=== PATIENT | male | born 1970 | race Caucasian/White ===

== ENCOUNTER 2016-10-12 18:43 | Inpatient (IN) | payer OTHER ==
[~2016-10-12] VITALS: Ht 180.3 cm; Wt 83.9 kg
[2016-10-12 20:56] LABS: *AMPHETAMINE, URINE NEGATIVE (NEGATIVE); *BARBITURATE, URINE NEGATIVE (NEGATIVE); *CANNABINOID, URINE NEGATIVE (NEGATIVE); *COCCAINE, URINE POSITIVE (NEGATIVE); *OPIATE, URINE NEGATIVE (NEGATIVE); *PHENCYCLIDINE SCREEN,URINE NEGATIVE (NEGATIVE)
--- NOTE | 2016-10-12 21:00 | NUR ---
ADMISSION NOTE BP: 128/85, HR:103, RR:18, T:98.3, SpO2: 97%, Pain: pt denies pain at this time Ht: 5'11" Wt: 185 lbs CIWA:6 [facility] accompanied by a BHT at 2014. Pt is a 45 year old male patient admitted on 10/12/16 for ETOH dependency. Pt is full code with NKA. He reports a PMHx of anxiety and depression. He denies any tremors, recent falls or seizures. Pt reports that he does not smoke cigarettes. He verbalized that he has a PCP located in [place], [place] but is unable to recall the name at this time. He reports that he does not take any home medications. Pt verbalized that he is here for ETOH withdrawal. And this is his first time in detox. He reports his longest period of sobriety was 3 months from April-June 2015. Pt reports that he was hospitalized on 10/11/16 at [facility] for ETOH dependency. He states " they gave me colloidal silver for alcoholism and I had a reaction." Pt is noted with open scab on nasofacial area. No bleeding/infection noted. He reports that he is a binge drinker and verbalizes his current use as: 1. ETOH (vodka) binges twice a week 750 mL. Since 2012. Last dose: 750 mL (vodka) on 10/11/16 at 2100. He reports his withdrawal symptoms as " depression, mood swings, sweats, and anxiety." Upon assessment, pt is alert and oriented x4, anxious and cooperative. Speech is clear and audible. Heart rate is regular. Pt denies chest pain or SOB. PERRLA, breathing is even and unlabored, lung sounds clear. Abdomen is soft and non-distended. Bowel sounds present, last BM (10/11/16) pt reports that BM is regular. Pt skin is warm, dry and intact. Noted with open scab to nasofacial area. No s/s of infection and no bleeding noted. Photo taken and placed in chart. Pt refused all vaccines. Pt oriented to room and unit. MD made aware of pt's admission. Pt safe with bed locked in lowest position, side rails up x2 and call light within reach. Will continue to monitor.
[2016-10-12] MEDS ORDERED: HYDROXYZINE PAMOATE 25 MG CAPSULE PO PRN (21:30)
[2016-10-12] MEDS ORDERED: LOPERAMIDE HCL 2 MG CAPSULE PO PRN ×2 (21:30)
[2016-10-12] MEDS ORDERED: DICYCLOMINE HCL 20 MG TABLET PO PRN (21:30)
[2016-10-12] MEDS ORDERED: CLONIDINE HCL 0.1 MG TABLET PO PRN (21:30)
[2016-10-12] MEDS ORDERED: MAGNESIUM HYDROXIDE 30 ML LIQUID UDC PO PRN (21:30)
[2016-10-12] MEDS ORDERED: ONDANSETRON ODT 4 MG TAB.RAPDIS SL PRN (21:30)
[2016-10-12] MEDS ORDERED: IBUPROFEN 400 MG TABLET PO PRN (21:30)
[2016-10-12] MEDS ORDERED: PROMETHAZINE HCL 25 MG/1 ML VIAL IM PRN (21:30)
[2016-10-12] MEDS ORDERED: LORAZEPAM 2 MG/1 ML VIAL IM PRN (21:30)
[2016-10-12] MEDS ORDERED: MIRALAX 17 GM POWD.PACK PO PRN (21:30)
[2016-10-12] MEDS ORDERED: diphenhydrAMINE 50 MG CAPSULE PO PRN (21:30)
[2016-10-12] MEDS ORDERED: THIAMINE HCL 200 MG/2 ML VIAL IM ONE (21:30)
[2016-10-12] MEDS ORDERED: MAG HYDROX/AL HYDROX/SIMETH 30 ML LIQUID UDC PO PRN (21:30)
[2016-10-12] MEDS ORDERED: LORAZEPAM 1 MG TABLET PO PRN ×2 (21:30)
[2016-10-12] MEDS ORDERED: ACETAMINOPHEN 325 MG TABLET PO PRN (21:30)
--- NOTE | 2016-10-12 21:30 | NUR ---
NURSING NOTE Pt noted with UDS positive for cocaine. Clarified substance abuse with pt. Pt stated, " I did a few lines with my say a week ago."
[2016-10-12 21:56] LABS: BASOPHILS # (AUTO) 0.1 K/uL (0.0-0.2); BASOPHILS % (AUTO) 1.5 % (0.0-2.0); EOSINOPHILS % (AUTO) 0.6 % (0.0-7.0); HEMATOCRIT 46.5 % (40.0-50.0); HEMOGLOBIN 15.7 g/dL (14.0-18.0); LYMPHOCYTES # (AUTO) 1.7 K/uL (0.8-4.8); LYMPHOCYTES % (AUTO) 28.3 % (20.5-51.5); MEAN CORPUSCULAR HEMOGLOBIN 29.6 uug (27.0-31.0); MEAN CORPUSCULAR HGB CONC 34 g/dL (32.0-37.0); MEAN CORPUSCULAR VOLUME 87.5 fL (82.0-92.0); MONOCYTES # (AUTO) 0.4 K/uL (0.1-1.30); MONOCYTES % (AUTO) 7.3 % (0.0-11.0); NEUTROPHILS # (AUTO) 3.8 K/uL (1.8-8.9); NEUTROPHILS % (AUTO) 62.3 % (38.5-71.5); PLATELET COUNT (AUTO) 243 K/uL (150-450); RED BLOOD CELL COUNT(AUTO) 5.31 MIL/uL (4.70-6.10)
[2016-10-12 22:00] LABS: ALBUMIN 4.2 g/dL (3.4-5.0); BILIRUBIN,TOTAL 1.5 mg/dL (0.2-1.0); CALCIUM 8.9 mg/dL (8.5-10.1); CREATININE 1.2 mg/dL (0.6-1.3); MAGNESIUM 1.8 mg/dL (1.8-2.4); POTASSIUM 3.7 mmol/L (3.5-5.1); TOTAL PROTEIN, SERUM 7.8 g/dL (6.4-8.2)
[2016-10-12] MEDS ORDERED: THIAMINE HCL 200 MG/2 ML VIAL ONE (22:04)
[2016-10-12 22:23] LABS: THYROID STIMULATING HORMONE 1.32 mIU/mL (0.358-3.740)
[2016-10-12 22:54] LABS: HIV-1/2 ANTIBODY NON REACTIVE (NONREACTIVE)
[2016-10-12 22:55] LABS: HIV-1 p24 ANTIGEN NON REACTIVE (NONREACTIVE)
--- NOTE | 2016-10-13 | NUR ---
VITALS 0000 vitals refused by pt. Pt lying in bed with eyes closed noted to be asleep. Respirations 16, breathing is even and unlabored. Safety measures in place. Will continue to monitor. Addendum: 10/13/16 at 0252 by JAZZ KWAN RN Amended: Links added.
--- NOTE | 2016-10-13 04:00 | NUR ---
VITALS 0400 vitals refused by pt. Pt lying in bed with eyes closed noted to be asleep. Respirations 16, breathing is even and unlabored. Safety measures in place. Will continue to monitor.
--- NOTE | 2016-10-13 07:18 | NUR ---
END OF SHIFT Pt is a 45 year old male patient admitted on 10/12/16 for ETOH dependency. Pt is full code with NKA. He reports a PMHx anxiety and depression. He did not receive or request PRN medications during shift. He slept a total of 8 hrs, Intake: 500 mL, Void: x1, BM: 0. Pt remains alert and oriented x4, breathing is even and unlabored, safety measures in place. Endorsed to AM shift.
--- NOTE | 2016-10-13 07:19 | NUR ---
Start Of Shift Pt is a 45 year old male patient admitted on 10/12/16 for ETOH dependency. Pt is full code regular diet on fall and seizure precautions denies any food or drug allergies. Pt reports a PMH Anxiety and Depression. 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 Pt is not currently on a taper but has PRN medications in case of any withdrawal symptoms. Pt's last CIWA was a 6 taken at 2200. Pt slept a total of 8 hr's last night. MRSA completed and is pending. All safety measures in place per hospital policy, call light within reach, bed in lowest locked position side rails up x2, will continue to monitor and provide support.
[2016-10-13 08:00] VITALS: BP 111/76
[2016-10-13] MEDS ORDERED: rolaids (08:43)
[2016-10-13] MEDS ORDERED: NEOM28.37 TP (08:43)
[2016-10-13] MEDS ORDERED: TUBERCULIN,PURIF.PROT.DERIV. 5 TU/0.1 ML TEST ID ONE (09:00)
[2016-10-13] MEDS: THIAMINE HCL 100 MG TABLET PO SCH (09:39)
[2016-10-13] MEDS: FOLIC ACID 1 MG TABLET PO SCH (09:39)
[2016-10-13] MEDS: MULTIVITAMINS,THERAPEUTIC TABLET PO SCH (09:39)
[2016-10-13 12:00] VITALS: BP 116/75
[2016-10-13] MEDS: PATIENT MAY USE OWN MED- MD OK TOP SCH ×2 (14:28→17:00)
[2016-10-13 16:00] VITALS: BP 126/73
--- NOTE | 2016-10-13 19:00 | NUR ---
End Of Shift Pt is a 45 year old male patient admitted on 10/12/16 for ETOH dependency. Pt is full code regular diet on fall and seizure precautions denies any food or drug allergies. Pt reports a PMH Anxiety and Depression. Pt did not receive or request any PRN medications during the day shift. Pt is not currently on a taper but has PRN medications in case of any withdrawal symptoms. Pts last CIWA was a 2 taken at 1600. Pt participated in some activities and groups. Pt stated that the medications are working well at controlling the withdrawal symptoms, evidenced by low assessment scores during the day ranging from 5-2. Pt received a PPD on his left arm, home medications have been reconciled. Pt now has a scheduled Neosporin for his scabs on his face. Pt ate all of his meals. Pt remains compliant with the treatment plan. Pts vital signs within normal limits, A/Ox4, denies chest pain. Respirations even unlabored, lungs clear upon auscultation abdomen soft and non- distended. Pt denies nausea, vomiting and diarrhea. Pt total fluid intake was 2008 ml with 2 voids and 1 stool. Safety measures in place, call light within reach. All pertinent information discussed with farm equipment mechanic, endorsement given to farm equipment mechanic nurse.
--- NOTE | 2016-10-13 19:15 | NUR ---
START OF SHIFT Received 45 year old male patient admitted on 10/12/16 for ETOH dependency. Pt is full code with NKA. He reports a PMHx of anxiety and depression. Pt reports drinking vodka 750 mL and binges twice a week for 4 years. Last dose was 750 mL vodka on 10/11/16. He currently not receiving a taper but has PRN medications availale. Per endorsement, pt did not receive or request PRN medications. Pt is alert and oriented x4, breathing is even and unlabored, safety measures in place. Will continue to monitor.
[2016-10-13 20:00] VITALS: BP 130/81
--- NOTE | 2016-10-14 | NUR ---
VITALS 0000 vitals refused by at at beginning of shift. Pt lying in bed with eyes closed noted to be asleep. Respirations 16, breathing is even and unlabored, safety measures in place. Will continue to monitor. Addendum: 10/14/16 at 0048 by JAZZ KWAN RN Amended: Links added.
--- NOTE | 2016-10-14 04:00 | NUR ---
VITALS 0400 vitals refused by at at beginning of shift. Pt lying in bed with eyes closed noted to be asleep. Respirations 16, breathing is even and unlabored, safety measures in place. Will continue to monitor.
--- NOTE | 2016-10-14 07:09 | NUR ---
END OF SHIFT Pt is 45 year old male patient admitted on 10/12/16 for ETOH dependency. Pt is full code with NKA. He reports a PMHx of anxiety and depression. He is currently not receiving a taper but has PRN medications available. Pt did not receive or request PRN medications. He slept a total of 5 hrs, Intake:737mL Void:x1 BM:x1 CIWA:2. Pt remains alert and oriented x4, breathing is even and unlabored, safety measures in place. Endorsed to AM shift.
--- NOTE | 2016-10-14 07:10 | NUR ---
Start Of Shift Pt is a 45 year old male patient admitted on 10/12/16 for ETOH dependency. Pt is full code regular diet on fall and seizure precautions denies any food or drug allergies. Pt reports a PMH Anxiety and Depression. 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 Pt is not currently on a taper but has PRN medications in case of any withdrawal symptoms. Pt's last CIWA was a 2 taken at 2200. Pt slept a total of 5 hr's last night. All safety measures in place per hospital policy, call light within reach, bed in lowest locked position side rails up x2, will continue to monitor and provide support.
[2016-10-14 08:00] VITALS: BP 129/83
[2016-10-14] MEDS: PATIENT MAY USE OWN MED- MD OK TOP SCH ×2 (09:24→17:00)
[2016-10-14] MEDS: FOLIC ACID 1 MG TABLET PO SCH (09:25)
[2016-10-14] MEDS: MULTIVITAMINS,THERAPEUTIC TABLET PO SCH (09:25)
[2016-10-14] MEDS: THIAMINE HCL 100 MG TABLET PO SCH (09:25)
[2016-10-14 12:00] VITALS: BP 127/75
[2016-10-14 14:09] LABS: *AMPHETAMINE, URINE NEGATIVE (NEGATIVE); *BARBITURATE, URINE NEGATIVE (NEGATIVE); *CANNABINOID, URINE NEGATIVE (NEGATIVE); *COCCAINE, URINE NEGATIVE (NEGATIVE); *OPIATE, URINE NEGATIVE (NEGATIVE); *PHENCYCLIDINE SCREEN,URINE NEGATIVE (NEGATIVE)
[2016-10-14 16:00] VITALS: BP 129/79
--- NOTE | 2016-10-14 19:15 | NUR ---
START OF SHIFT Received 45 year old male patient admitted on 10/12/16 for ETOH dependency. Pt is full code with NKA. He reports a PMHx of anxiety and depression. Pt reports drinking vodka 750 mL and binges twice a week for 4 years. Last dose was 750 mL vodka on 10/11/16. He is currently not receiving a taper but has PRN medications available. Per endorsement, pt did not receive or request PRN medications and is scheduled to be DC tomorrow. Pt is alert and oriented x4, breathing is even and unlabored, safety measures in place. Will continue to monitor.
--- NOTE | 2016-10-14 19:17 | NUR ---
End Of Shift Pt is a 45 year old male patient admitted on 10/12/16 for ETOH dependency. Pt is full code regular diet on fall and seizure precautions denies any food or drug allergies. Pt reports a PMH Anxiety and Depression. Pt did not receive or request any PRN medications during the day shift. Pt is not currently on a taper but has PRN medications in case of any withdrawal symptoms. Pt's last CIWA was a 1 taken at 1600. Pt participated in some activities and groups. Pt stated that the medications are working well at controlling the withdrawal symptoms, evidenced by low assessment scores during the day ranging from 2-1. Pt ate all of his meals. Pt remains compliant with the treatment plan. Pts vital signs within normal limits, A/Ox4, denies chest pain. Respirations even unlabored, lungs clear upon auscultation abdomen soft and non- distended. Pt denies nausea, vomiting and diarrhea. Pt total fluid intake was 3000 ml with 4 voids and 2 stool. Safety measures in place, call light within reach. All pertinent information discussed with rn clinical research, endorsement given to rn clinical research nurse.
[2016-10-14 20:00] VITALS: BP 127/74
--- NOTE | 2016-10-15 | NUR ---
VITALS 0000 vitals refused by pt at beginning of shift. Pt lying in bed with eyes closed noted to be asleep. Respirations 16, breathing is even and unlabored, safety measures in place. Will continue to monitor.
--- NOTE | 2016-10-15 04:00 | NUR ---
VITALS 0400 vitals refused by pt at beginning of shift. Pt lying in bed with eyes closed noted to be asleep. Respirations 16, breathing is even and unlabored, safety measures in place. Will continue to monitor.
--- NOTE | 2016-10-15 07:17 | NUR ---
END OF SHIFT Pt is a 45 year old male patient admitted on 10/12/16 for ETOH dependency. Pt is full code with NKA. He reports a PMHx of anxiety and depression. He is currently not receiving a taper but has PRN medications availale. He is scheduled to be DC today. He did not receive or request PRN medications, he slept a total of 5 hrs, Intake: 1153 mL, void: x3, BM: 0, CIWA: 1. Pt remains alert and oriented x4, breathing is even and unlabored, safety measures in place. Endorsed to oncoming shift.
--- NOTE | 2016-10-15 07:30 | NUR ---
START OF SHIFT Pt is a 45 yr old male, AA&Ox4. Pt was admitted on 10/12/16 for ETOH Dependence and was on PRN's for s/s of w/d. No PRN's were given during the night. Pt is full code, regular diet and NKA. Pt reports of PMH Anxiety and Depression. Pt is to be discharged today to [facility]. UDS and Discharge order is complete. Will continue to f/u. Pt denies any anxiety or agitation. Skin is intact, warm and dry to touch. Pt is still noted with dry scab on bridge of nose. Pt remains on Neosporin oint daily. Medication is effective. Pt denies any n/v or pain. No tremors seen or felt. Encouraged increase fluid intake. Safety precautions observed. Call light is within reach. Will continue to monitor.
[2016-10-15 08:00] VITALS: BP 126/81
[2016-10-15] MEDS: THIAMINE HCL 100 MG TABLET PO SCH (08:31)
[2016-10-15] MEDS: FOLIC ACID 1 MG TABLET PO SCH (08:31)
[2016-10-15] MEDS: PATIENT MAY USE OWN MED- MD OK TOP SCH (08:31)
[2016-10-15] MEDS: MULTIVITAMINS,THERAPEUTIC TABLET PO SCH (08:31)
[2016-10-15 12:00] VITALS: BP 138/100
--- NOTE | 2016-10-15 13:10 | NUR ---
DISCHARGE NOTE Pt is a 45 yr old male, AA&Ox4. Pt was admitted on 10/12/16 for ETOH Dependence and was on PRN's for s/s of w/d. No PRN's were given during the night. Pt is full code, regular diet and NKA. Pt reports of PMH Anxiety and Depression. Pt has been cooperative with care and attended group sessions. Pt was cooperative with medication regime. Pt was educated on discharged summary. Pt was able to verbalize understanding. Pt was discharged to [facility] at 1305 in stable condition with all belongings, home medications, and values.
[2016-10-16 04:23] LABS: HCV AB 0.1 s/co ratio (0.0-0.9); HEPATITIS B CORE AB, IgM Negative (Negative); HEPATITIS B SURFACE AG Negative (Negative)
== END 2016-10-15 13:05 | disposition other institution (70) | DRG 895 ==
LOC: SRC 19:08
PROVIDERS: ADMIT Internal Medicine; ATTEND Internal Medicine
PROC: HZ2ZZZZ Detoxification Services for Substance Abuse Treatment (ICD-10-PCS; principal; 2016-10-12)
PROC: HZ31ZZZ Individual Counseling for Substance Abuse Treatment, Behavioral (ICD-10-PCS; 2016-10-13)
PROC: HZ41ZZZ Group Counseling for Substance Abuse Treatment, Behavioral (ICD-10-PCS; 2016-10-14)
DX: F10.10 Alcohol abuse, uncomplicated (principal); F14.10 Cocaine abuse, uncomplicated; Y90.9 Presence of alcohol in blood, level not specified; F41.9 Anxiety disorder, unspecified; G47.00 Insomnia, unspecified; Z83.3 Family history of diabetes mellitus; Z81.1 Family history of alcohol abuse and dependence
CPT/HCPCS: 36415; 70030-TC; 80307; 80349; 83690; 83735; 84443; 85025; 86580; 86592; 86705; 86803; 87340; 87806; A4663; G6040-TC; J3411